=== PATIENT | female | born 1980 | race Caucasian/White ===

== ENCOUNTER → 2016-04-26 | Day surgery (SDC) | payer OTHER ==
[~2016-04-26] MED LIST: ACETAMINOPHEN 1000 MG/100 ML VIAL IV ONE; BACITRACIN IM FOR SOLN 50,000 UNIT VIAL ONE; BUPIVACAINE/EPINEPHRINE 0.25% PF 30 ML VIAL ONE; GENTAMICIN SULFATE 80 MG/2 ML VIAL ONE; KETOROLAC TROMETHAMINE 30 MG/ML (IVP) VIAL IV PUSH ONE; LACTATED RINGER'S 1000 ML INJ 1,000 ML ONE; LIDOCAINE 1%/EPINEPHrine 1:100,000 SOLN 20 ML VIAL ONE; MEPERIDINE HCL 25 MG/ML VIAL ONE; MICRONOR PO; MIDAZOLAM HCL 2 MG/2 ML VIAL ONE; NAPR550 PO; ONDANSETRON HCL 4 MG/2 ML VIAL IV PUSH ONE; PROPOFOL 200 MG/20 ML AMP IV ONE; SENN1TAB11 PO; SODIUM CHLORIDE 0.9% 20 ML VIAL ONE; ceFAZolin INJ 1,000 MG VIAL ONE
--- NOTE | 2016-04-26 11:09 | TN ---
cc: MILAN ALMONTE M.D. DATE OF SURGERY: 04/26/2016 PREOPERATIVE DIAGNOSIS Bilateral mammary hypoplasia. POSTOPERATIVE DIAGNOSIS Bilateral mammary hypoplasia. PROCEDURE Bilateral augmentation mammoplasty. SURGEON Milan Almonte ANESTHESIA LMA general. ESTIMATED BLOOD LOSS Minimal. COMPLICATIONS None. IMPLANT DATA Style 20 Natrelle, volume 425 cc, serial number of the right device [id number] and on the left [id number] also a Natrelle style 20, volume 425. DETAILS OF PROCEDURE She was properly consented, marked and anesthetized. The skin was sterilized with Betadine solution and sterile draping applied. A breast block utilizing a total of 60 cc of combination 1% lidocaine with epinephrine mixed with 0.25% Marcaine at 2:1 ratio was properly performed, 30 cc per breast. After isolating the nipple-areolar complex with a small Tegaderm I proceeded and performed through a 4.5 to 5 inframammary incision, sparing and conserving Zelalem's fascia, approaching the lateral edge of the pectoralis major muscle. The inferomedial fibers were properly very judiciously. After the pocket was created irrigation with triple-antibiotic solution was carried out. The contralateral side was approached in exactly the same manner. At this point utilizing the isolation of the skin, utilizing a no-touch technique, I introduced the device. The patient was sat up creating some blunt touch techniques to assure best symmetry possible. The patient was placed supine and the wounds were closed in multiple 2-0 Monocryl suture layers in the Zelalem's fascia, dermis and subcu. After Mastisol Steri-Strips were applied. Overall the patient tolerated the procedure well. She was awakened and extubated in the operating room. Absorbent dressings included a snug brassiere. The patient tolerated the procedure well. MD MILENA Rowell/GEORGIE /8:27 AM /11:04 AM
== END | disposition home or self-care (01) ==
LOC: ESDC 06:34
PROVIDERS: ATTEND Plastic Surgery
DX: Z41.1 Encounter for cosmetic surgery (principal)
CPT/HCPCS: 00402; 19325; C1789; J0131; J0690; J1580; J1885; J2175; J2250; J2405; J3010; J7120